=== PATIENT | male | born 1990 | race Caucasian/White ===

== ENCOUNTER → 2022-07-31 | Outpatient (CLI) | payer OTHER | LOC: MHCPAIN 08:36 | DX: M47.817 Spondylosis without myelopathy or radiculopathy, lumbosacral region (principal); M54.50 Low back pain, unspecified; M53.3 Sacrococcygeal disorders, not elsewhere classified; M79.18 Myalgia, other site | CPT/HCPCS: G0463 ==

== ENCOUNTER → 2022-11-28 | Outpatient (CLI) | payer OTHER | LOC: MHCPAIN 07:49 | DX: M47.817 Spondylosis without myelopathy or radiculopathy, lumbosacral region (principal); M54.50 Low back pain, unspecified | CPT/HCPCS: J0665; J1100; J2250; J3010 ==